=== PATIENT | female | born 1990 | race Caucasian/White ===

== ENCOUNTER 2020-03-27 15:44 | Emergency (ER) | payer SELFPAY ==
[2020-03-27] MEDS ORDERED: ACETAMINOPHEN 500 MG TAB PO ONE (16:01)
[2020-03-27] MEDS ORDERED: SODIUM CHLORIDE 0.9% 1000ML 1,000 ML IVS ONE (16:01)
--- NOTE | 2020-03-27 16:06 | ED.PDOC ---
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 Denies recent travel cough or contact with covid 19. 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 Denies fever chills admits nausea vomiting denies diarrhea chest pain sob diaphoresis. No change in diet rest bowel or bladder. Denies drinking or smoking admits FH HTN DM no other c/o today. Allergies/Adverse Reactions: Allergies Cinnamon Allergy (Verified 06/20/14 12:47) Penicillins Allergy (Verified 06/20/14 12:47) Vancomycin Allergy (Verified 06/20/14 12:47) Home Medications: Ambulatory Orders HYDROcodone 5MG/APAP 325MG [[place] 5/325] 1 ea PO Q4-6H PRN 06/20/14 Sulfamethoxazole-Trimethoprim [Bactrim Ds 800-160 mg] 2 tab PO BID 06/20/14 Doxycycline Hyclate [Vibramycin] 100 mg PO BID #20 cap 06/22/14 traMADol 37.5MG/APAP 325MG [Ultracet] 1 ea PO .Q6H #0 tab 06/22/14 Review of Systems - Review of Systems Constitutional: States: see HPI EENTM: States: see HPI Respiratory: States: see HPI Cardiology: States: see HPI Gastrointestinal/Abdominal: States: see HPI Genitourinary: States: see HPI Musculoskeletal: States: see HPI Skin: States: see HPI Neurological: States: see HPI Endocrine: States: see HPI Hematologic/Lymphatic: States: see HPI All other Systems: Reviewed and Negative Past Medical History (General) - Patient Medical History Hx Seizures: No Hx Stroke: No Hx Dementia: No Hx Asthma: No Hx of COPD: No Hx Cardiac Disorders: No Hx Congestive Heart Failure: No Hx Pacemaker: No Hx Hypertension: No Hx Thyroid Disease: No Hx Diabetes: No Hx Gastroesophageal Reflux: No Hx Renal Disease: No Hx Cancer: No Hx of HIV: No Hx Hepatitis C: No Hx MRSA: No MRSA Source:: Wound - Vaccination History Hx Tetanus, Diphtheria Vaccination: Yes Hx Influenza Vaccination: No Hx Pneumococcal Vaccination: No - Social History Hx Tobacco Use: No Hx Chewing Tobacco Use: No Hx Alcohol Use: No Hx Substance Use: No Hx Substance Use Treatment: No Hx Depression: No Hx Physical Abuse: No Hx Emotional Abuse: No Hx Suspected Abuse: No - Female History Hx Last Menstrual Period: 06/06/14 Patient : No Family Medical History - Family History Mother Family History: No Known Physical Exam - Physical Exam General Appearance: Anxious Eye Exam: bilateral normal Ears, Nose, Throat: normal ENT inspection Neck: non-tender, full range of motion Respiratory: no respiratory distress Cardiovascular/Chest: tachycardia Gastrointestinal/Abdominal: soft, tenderness - tender suprapubically Rectal Exam: deferred Back Exam: normal inspection Extremity: normal range of motion, non-tender Neurologic: no motor/sensory deficits Skin Exam: normal color Progress - Progress Progress: 03/27/20 16:12 PPE worn-N95 surgical mask with attached face shield over N95 goggles gloves and a face shield over that 03/27/20 16:26 A/P-Twin , Vaginal Bleeding, Threatened AB, Abdominal Pain, Nausea, Vomiting, Syncope-iv large bore x 2 2liter IV bolus cbc cmp lipase type and screen BHCG quant ekg trop ua ekg cxr therapist occupational pulse ox reassess TRANSFER 03/27/20 16:28 03/27/20 17:26 Laboratory Tests 03/27/20 03/27/20 03/27/20 16:30 16:30 16:30 WBC RBC Hgb Hct MCV MCH MCHC RDW Plt Count MPV Absolute Neuts (auto) Absolute Lymphs (auto) Absolute Monos (auto) Absolute Eos (auto) Absolute Basos (auto) Neutrophils % Lymphocytes % Monocytes % Eosinophils % Basophils % PT 10.3 INR 1.04 PTT (SP) 19.3 L Sodium 131 L Potassium 3.5 L Chloride 101 Carbon Dioxide 20 L Anion Gap 13.5 BUN 11 Creatinine 0.72 BUN/Creatinine Ratio 15.3 Random Glucose 112 H Serum Osmolality 262.8 L Lactic Acid Calcium 8.8 Total Bilirubin 0.9 AST 40 ALT 53 Alkaline Phosphatase 57 Troponin I 0.04 Serum Total Protein 7.2 Albumin 3.5 Globulin 3.7 H Albumin/Globulin Ratio 0.9 L Lipase 25 03/27/20 03/27/20 16:30 16:30 WBC 12.9 H RBC 3.49 L Hgb 10.2 L Hct 29.9 L MCV 85.6 MCH 29.4 MCHC 34.3 RDW 13.6 Plt Count 246 MPV 10.5 H Absolute Neuts (auto) 11.20 H Absolute Lymphs (auto) 1.00 Absolute Monos (auto) 0.60 Absolute Eos (auto) 0.00 Absolute Basos (auto) 0.10 Neutrophils % 86.7 H Lymphocytes % 7.4 L Monocytes % 5.0 Eosinophils % 0.3 L Basophils % 0.6 PT INR PTT (SP) Sodium Potassium Chloride Carbon Dioxide Anion Gap BUN Creatinine BUN/Creatinine Ratio Random Glucose Serum Osmolality Lactic Acid 1.7 Calcium Total Bilirubin AST ALT Alkaline Phosphatase Troponin I Serum Total Protein Albumin Globulin Albumin/Globulin Ratio Lipase EXAM DESCRIPTION: OB ,Early (0-14wks): Ultrasound. CLINICAL HISTORY: 29 years Female intrauterine . Previous tubal ligation 7 years ago. Obstetrical history unknown. LMP unknown. COMPARISON: Pelvic ultrasound March 2019. TECHNIQUE: Transpelvic scanning through the urine filled bladder: [place]- scale and Doppler modes. FINDINGS: Uterus: Not measured. Gestational sac: Well- defined gestational sac containing twin gestations. AFV: Subjectively normal. pole: Baby A inferior in the sac and maternal left. [place]-rump length 5.1 cm corresponding to EGA 11 weeks and 5 days. Baby B superior in the sac and maternal right. [place]-rump length 6.2 cm corresponding to EGA 12 weeks and 4 days. No definite membrane seen between the fetuses. Possible single posterior placenta. Yolk sac: Not seen. heart tones: Baby A 174 bpm. Baby B 167 bpm. Subchorionic hemorrhage: Hypoechoic region superior gestational sac measuring 6.0 x 1.7 x 2.5 cm. Cul-de-sac: No fluid. Comments: Mean EGA is 12 weeks and 1 day. BALWINDER 08 October 2020. Ovaries were not identified. No adnexal mass or free fluid. IMPRESSION: 1. Twin living intrauterine gestations. Please see above details for positioning. No definite membrane was visualized. Possible single posterior placenta. 2. Mean EGA is 12 weeks and 1 day with BALWINDER 08 October 2020. Subchorionic hemorrhage superior. No fluid in the cul-de-sac. No adnexal mass or free fluid. Ovaries were not identified. Electronically signed by: Moe Torres MD 03/27/2020 4:54 PM CDT - Results/Orders Results/Orders: EKG-non specific TW changes Sinus Tachycardia 118bpm Departure - Departure Clinical Impression: Vaginal bleeding, Nausea, Dehydration, Threatened Twin Qualifiers: Multiple gestation type: unspecified Trimester: unspecified trimester Qualified Code(s): O30.009 - Twin , unspecified number of placenta and unspecified number of amniotic sacs, unspecified trimester Syncope Qualifiers: Syncope type: unspecified Qualified Code(s): R55 - Syncope and collapse Abdominal pain Qualifiers: Abdominal location: generalized Qualified Code(s): R10.84 - Generalized abdominal pain Vomiting Qualifiers: Vomiting type: unspecified Vomiting Intractability: unspecified Nausea presence: unspecified Qualified Code(s): R11.10 - Vomiting, unspecified Subchorionic hemorrhage Qualifiers: Fetus number: single or unspecified fetus Trimester: second trimester Qualified Code(s): O41.8X20 - Other specified disorders of amniotic fluid and membranes, second trimester, not applicable or unspecified; O46.8X2 - Other antepartum hemorrhage, second trimester Time of Disposition: 17:55 Disposition: Transfer to Hospital Condition: Fair Departure Forms: ED Discharge - Pt. Copy, Patient Portal Self Enrollment Home Medications: Ambulatory Orders HYDROcodone 5MG/APAP 325MG [[place] 5/325] 1 ea PO Q4-6H PRN 06/20/14 Sulfamethoxazole-Trimethoprim [Bactrim Ds 800-160 mg] 2 tab PO BID 06/20/14 Doxycycline Hyclate [Vibramycin] 100 mg PO BID #20 cap 06/22/14 traMADol 37.5MG/APAP 325MG [Ultracet] 1 ea PO .Q6H #0 tab 06/22/14 Transfer to Outside Facility - Transfer Information Decision to Transfer Date: 03/27/20 Decision to Transfer Time: 17:57 Reason for Transfer: specialized care not available Accepting Provider:: Dr[facility] Iraheta [facility] Accepting Facility: [facility]
--- NOTE | 2020-03-27 16:56 | US ---
EXAM DESCRIPTION: OB ,Early (0-14wks): Ultrasound. CLINICAL HISTORY: 29 years Female intrauterine . Previous tubal ligation 7 years ago. Obstetrical history unknown. LMP unknown. COMPARISON: Pelvic ultrasound March 2019. TECHNIQUE: Transpelvic scanning through the urine filled bladder: [place]-scale and Doppler modes. FINDINGS: Uterus: Not measured. Gestational sac: Well-defined gestational sac containing twin gestations. AFV: Subjectively normal. pole: Baby A inferior in the sac and maternal left. [place]-rump length 5.1 cm corresponding to EGA 11 weeks and 5 days. Baby B superior in the sac and maternal right. [place]-rump length 6.2 cm corresponding to EGA 12 weeks and 4 days. No definite membrane seen between the fetuses. Possible single posterior placenta. Yolk sac: Not seen. heart tones: Baby A 174 bpm. Baby B 167 bpm. Subchorionic hemorrhage: Hypoechoic region superior gestational sac measuring 6.0 x 1.7 x 2.5 cm. Cul-de-sac: No fluid. Comments: Mean EGA is 12 weeks and 1 day. BALWINDER 08 October 2020. Ovaries were not identified. No adnexal mass or free fluid. IMPRESSION: 1. Twin living intrauterine gestations. Please see above details for positioning. No definite membrane was visualized. Possible single posterior placenta. 2. Mean EGA is 12 weeks and 1 day with BALWINDER 08 October 2020. Subchorionic hemorrhage superior. No fluid in the cul-de-sac. No adnexal mass or free fluid. Ovaries were not identified. Electronically signed by: Moe Torres MD 03/27/2020 4:54 PM CDT
[2020-03-27 19:03] VITALS: TEMP 98.4
[2020-03-27 19:26] VITALS: BP 108/79; O2SAT 99
== END 2020-03-27 19:15 | disposition short-term general hospital (02) ==
LOC: ER 15:44
DX: O30.002 Twin pregnancy, unspecified number of placenta and unspecified number of amniotic sacs, second trimester (principal); O20.0 Threatened abortion; O21.1 Hyperemesis gravidarum with metabolic disturbance; O41.8X20 Other specified disorders of amniotic fluid and membranes, second trimester, not applicable or unspecified; R00.0 Tachycardia, unspecified; R55 Syncope and collapse; R10.84 Generalized abdominal pain; Z3A.12 12 weeks gestation of pregnancy; Z98.51 Tubal ligation status
CPT/HCPCS: 36415; 36416; 76813; 80053; 81001; 82948; 83605; 83690; 84484; 84702; 85025; 85610; 85730; 86850; 86900; 86901; 93005; 94760; J7030